=== PATIENT | male | born 1990 | race Caucasian/White ===

== ENCOUNTER 2017-07-13 09:17 | Emergency (ER) | payer MEDICAID ==
[~2017-07-13] VITALS: Ht 185.4 cm; Wt 83.9 kg
[~2017-07-13 09:17] MED LIST: IBUP800T24 PO
[2017-07-13 09:33] VITALS: BP 123/82
== END 2017-07-13 16:44 | disposition left against medical advice (07) ==
LOC: ER 09:17
DX: H57.11 Ocular pain, right eye (principal); Z53.21 Procedure and treatment not carried out due to patient leaving prior to being seen by health care provider

== ENCOUNTER 2024-03-31 19:40 | Emergency (ER) | payer MEDICAID, OTHER ==
[~2024-03-31] VITALS: Ht 182.9 cm; Wt 83.1 kg
[~2024-03-31 19:40] MED LIST changes: +IBUP-1456 PO; -IBUP800T24 PO
[2024-03-31] MEDS: HYDROcodone-ACET 10/325MG TAB PO ONE (20:36)
[2024-03-31] MEDS: IOHEXOL 300 MG/ML 100ML BOTTLE IJ ONE (20:49)
[2024-03-31 20:50] VITALS: PULSE 82; RESP 17; O2SAT 98
[2024-03-31] MEDS: SODIUM CHLORIDE 0.9% 1,000 ML IV ONE (22:02)
[2024-03-31] MEDS: ONDANSETRON HCL 4 MG/2 ML VIAL IV ONE (22:02)
[2024-03-31 22:03] LABS: Basophils # (auto) 0.1 10 ^3/uL (0-0.2); Basophils % (auto) 0.5 % (0.0-2.0); Eosinophils # (auto) 0 10 ^3/uL (0-0.8); Eosinophils % (auto) 0.1 % (0.0-7.0); Hematocrit 45.9 % (41.0-53.0); Hemoglobin 16.4 g/dL (13.5-17.5); Lymphocytes % (auto) 6.7 % (10.0-50.0); Mean Corpuscular Hemoglobin 30.8 pg (28.0-32.0); Mean Corpuscular Hgb Conc. 35.7 g/dL (32.0-36.0); Mean Corpuscular Volume 86.1 fL (80.0-100.0); Monocytes # (auto) 0.9 10 ^3/uL (0-1.3); Monocytes % (auto) 5.9 % (0.0-12.0); Neutrophils # (auto) 13.3 10 ^3/uL (1.6-8.6); Neutrophils % (auto) 86.8 % (37.0-80.0); Platelet Count (auto) 287 10^3/uL (140-450); Red Blood Cells 5.33 10^6/uL (4.5-5.90); Red Cell Distribution Width 13.3 % (11.8-14.3); White Blood Cell 15.3 10^3/uL (4.4-10.8)
[2024-03-31 22:06] LABS: Chloride 106 mmol/L (98-107); Potassium 3.6 mmol/L (3.5-5.1); Sodium 140 mmol/L (136-145)
[2024-03-31 22:07] LABS: Anion Gap 11 (5-15); Carbon Dioxide 23 mmol/L (20-30)
[2024-03-31 22:08] LABS: Calcium 10.4 mg/dL (8.7-10.4)
[2024-03-31] MEDS: MORPHINE SULFATE 4 MG/ML SYR/VIAL IV ONE (22:11)
[2024-03-31 22:12] LABS: Glucose 125 mg/dL (74-106)
[2024-03-31 22:13] LABS: BUN/Creatinine Ratio 17.2 (10.0-20.0); Blood Urea Nitrogen 16 mg/dL (9-23)
[2024-04-01 06:50] VITALS: BP 132/69; PULSE 60; RESP 16; TEMP 98; O2SAT 99
[2024-04-01] MEDS: MORPHINE SULFATE 4 MG/ML SYR/VIAL IV ONE (06:50)
[2024-04-01] MEDS: ONDANSETRON HCL 4 MG/2 ML VIAL IV ONE (06:50)
== END 2024-04-01 07:28 | disposition short-term general hospital (02) ==
LOC: ER 19:40
DX: S30.1XXA Contusion of abdominal wall, initial encounter (principal); K52.9 Noninfective gastroenteritis and colitis, unspecified; F12.10 Cannabis abuse, uncomplicated; V43.52XA Car driver injured in collision with other type car in traffic accident, initial encounter; Y93.89 Activity, other specified; Y92.488 Other paved roadways as the place of occurrence of the external cause; Y99.8 Other external cause status
CPT/HCPCS: 36415; 73120; 74177; 80048; 85025; 96361; 96374; 96375; 96376; 99285; J2270; J2405; Q9967